=== PATIENT | female | born 1995 | race African-American/Black ===

== ENCOUNTER 2017-07-12 10:51 | Emergency (ER) | payer OTHER ==
[~2017-07-12] VITALS: Ht 137.2 cm; Wt 41.0 kg
[2017-07-12 11:02] VITALS: BP 126/73
== END 2017-07-12 16:18 | disposition left against medical advice (07) ==
LOC: ER 10:51
DX: Z53.21 Procedure and treatment not carried out due to patient leaving prior to being seen by health care provider (principal)